=== PATIENT | female | born 2000 | race African-American/Black ===

== ENCOUNTER 2022-05-15 09:54 | Emergency (ER) | payer MEDICAID ==
[~2022-05-15] VITALS: Ht 152.4 cm; Wt 67.0 kg
[2022-05-15] MEDS ORDERED: IBUPROFEN 400MG TABLET PO ONE (12:45)
[2022-05-15] MEDS ORDERED: IBUP-2028 MT (12:53)
[2022-05-15 13:28] VITALS: BP 122/76
== END 2022-05-15 13:32 | disposition home or self-care (01) ==
LOC: ER 09:54
DX: R05.9 Cough, unspecified (principal); J02.9 Acute pharyngitis, unspecified; R50.9 Fever, unspecified
CPT/HCPCS: 81025; 99283